=== PATIENT | male | born 1965 | race African-American/Black ===

== ENCOUNTER 2017-09-06 10:49 | Emergency (ER) | payer OTHER ==
[~2017-09-06] VITALS: Ht 180.3 cm; Wt 76.0 kg
[~2017-09-06 10:49] MED LIST: ALBU18HF2 IH; DILANTIN; LISINOPRIL; PHENOBARBITAL
[2017-09-06] MEDS ORDERED: FLUORESCEIN SODIUM 1MG/STRIP RIGHTEYE ONE (12:00)
[2017-09-06] MEDS ORDERED: CLONIDINE 0.1MG TABLET PO ONE (12:00)
[2017-09-06] MEDS ORDERED: IBUPROFEN 800MG TABLET PO ONE (12:00)
[2017-09-06] MEDS ORDERED: HYDROCHLOROTHIAZIDE 25MG TABLET PO ONE (14:00)
[2017-09-06 15:09] VITALS: BP 161/92
== END 2017-09-06 15:37 | disposition short-term general hospital (02) ==
LOC: ER 13:47
DX: S02.81XA Fracture of other specified skull and facial bones, right side, initial encounter for closed fracture (principal); S04.011A Injury of optic nerve, right eye, initial encounter; I10 Essential (primary) hypertension; G40.909 Epilepsy, unspecified, not intractable, without status epilepticus; F17.200 Nicotine dependence, unspecified, uncomplicated; Y04.0XXA Assault by unarmed brawl or fight, initial encounter; Y93.89 Activity, other specified; Y92.89 Other specified places as the place of occurrence of the external cause
CPT/HCPCS: 70486; 99285; Z7610

== ENCOUNTER 2019-10-13 18:20 | Emergency (ER) | payer OTHER ==
[~2019-10-13] VITALS: Ht 177.8 cm; Wt 82.0 kg
[2019-10-13] MEDS ORDERED: KETOROLAC 30MG/ML VIAL IV STA (21:12)
[2019-10-13] MEDS ORDERED: ONDANSETRON HCL 4MG/2ML INJ IV STA (21:12)
[2019-10-13] MEDS ORDERED: SODIUM CHLORIDE 0.9% 1,000 ML IV ONE (21:12)
[2019-10-13 22:14] LABS: BASOPHILS % 0.8 % (0.0-2.0); EOSINOPHILS % 0.1 % (0.0-5.0); HEMATOCRIT. 46.1 % (42.0-52.0); HEMOGLOBIN. 15.9 g/dL (14.0-18.0); LYMPHOCYTES % 13.2 % (20.0-50.0); MEAN CORPUSCULAR HEMOGLOBIN 33.3 pg (28.0-32.0); MEAN CORPUSCULAR VOLUME 96.3 fL (80.0-94.0); MEAN PLATELET VOLUME 9.8 fl (7.4-10.4); MONOCYTES % 5.2 % (2.0-8.0); NEUTROPHILS % 80.7 % (40.0-76.0); PLATELET 224 x1000/uL (130-400); RED BLOOD CELL COUNT 4.79 mill/uL (4.7-6.1); RED CELL DISTRIBUTION WIDTH 13.2 % (11.6-14.6)
[2019-10-13 22:18] LABS: CHLORIDE 106 mEq/L (98-107)
[2019-10-14] MEDS ORDERED: ASPIRIN 325MG EC TABLET PO ONE (00:15)
[2019-10-14 00:30] LABS: CLARITY URINE CLEAR (CLEAR); COLOR URINE DARK YELLOW (YELLOW); KETONES URINE 1+ (NEGATIVE); LEUKOCYTE ESTERASE URINE TRACE (NEGATIVE); NITRITE URINE NEGATIVE (NEGATIVE); OCCULT BLOOD URINE NEGATIVE (NEGATIVE); PROTEIN URINE 2+ (NEGATIVE); SPECIFIC GRAVITY URINE 1.038 (1.005-1.030)
[2019-10-14] MEDS ORDERED: CEFTRIAXONE 1 G PREMIX 50 ML IV ONE (02:00)
[2019-10-14] MEDS ORDERED: MORPHINE SULFATE 4 MG/ML CPJ (NOT FOR IM USE) IV ONE (04:15)
[2019-10-14] MEDS ORDERED: ONDANSETRON HCL 4MG/2ML INJ IV ONE (04:15)
[2019-10-14] MEDS ORDERED: KEPP500 PO (05:50)
[2019-10-14] MEDS ORDERED: HYDR100T26 PO (05:52)
[2019-10-14] MEDS ORDERED: CLON-457 PO (05:54)
[2019-10-14 07:52] VITALS: BP 160/109
== END 2019-10-14 08:00 | disposition short-term general hospital (02) ==
LOC: ER 18:20
DX: R07.89 Other chest pain (principal); N39.0 Urinary tract infection, site not specified; R10.84 Generalized abdominal pain; K44.9 Diaphragmatic hernia without obstruction or gangrene; R94.31 Abnormal electrocardiogram [ECG] [EKG]; I10 Essential (primary) hypertension; G40.909 Epilepsy, unspecified, not intractable, without status epilepticus; Z98.890 Other specified postprocedural states
CPT/HCPCS: 36415; 71045; 74176; 80053; 81003; 83690; 83880; 84484; 85025; 93005; 96365; 96375; 96376; 99285; J0696; J1885; J2270; J2405; J7030

== ENCOUNTER 2019-11-22 09:53 | Emergency (ER) | payer OTHER ==
[~2019-11-22] VITALS: Ht 177.8 cm; Wt 91.0 kg
[~2019-11-22 09:53] MED LIST changes: +CLON-457 PO; +HYDR100T26 PO; +KEPP500 PO
[2019-11-22] MEDS ORDERED: IBUPROFEN 600MG TABLET PO ONE (10:15)
[2019-11-22 10:19] VITALS: BP 150/98
== END 2019-11-22 11:44 | disposition home or self-care (01) ==
LOC: ER 09:53
DX: S93.491A Sprain of other ligament of right ankle, initial encounter (principal); W18.42XA Slipping, tripping and stumbling without falling due to stepping into hole or opening, initial encounter; Y93.01 Activity, walking, marching and hiking; Y92.488 Other paved roadways as the place of occurrence of the external cause
CPT/HCPCS: 73610; 73630; 99284